=== PATIENT | female | born 1940 | race Caucasian/White ===

== ENCOUNTER 2018-01-29 10:20 | Outpatient (CLI) | payer MEDICARE ==
[~2018-01-29 10:20] MED LIST: CARV-50 PO; CELE-193 PO; CEPH-571 PO; COU2.5T PO; COU5T PO; HYDR-3965 PO; METF500T7 PO; MULTI-VITAMIN PO; SYN0.0125T PO
[2018-01-29] MEDS ORDERED: OLME1TAB44 (14:40)
== END 2018-01-29 12:43 | disposition home or self-care (01) ==
LOC: WOUND CARE 10:20 → EDSTATUS 10:30 → WOUND CARE 12:43
PROVIDERS: ATTEND Surgery
DX: L97.211 Non-pressure chronic ulcer of right calf limited to breakdown of skin (principal); I89.0 Lymphedema, not elsewhere classified; I10 Essential (primary) hypertension; E03.9 Hypothyroidism, unspecified; G89.29 Other chronic pain; I48.91 Unspecified atrial fibrillation; F41.9 Anxiety disorder, unspecified; F32.9 Major depressive disorder, single episode, unspecified; Z90.710 Acquired absence of both cervix and uterus; Z90.49 Acquired absence of other specified parts of digestive tract; Z79.01 Long term (current) use of anticoagulants
CPT/HCPCS: 36416; 82948; 99215; A6021; A6206

== ENCOUNTER 2018-02-06 10:16 | Day surgery (SDC) | payer MEDICARE ==
[~2018-02-06 10:16] MED LIST changes: -CEPH-571 PO; +OLME1TAB44
== END 2018-02-06 12:28 | disposition home or self-care (01) ==
LOC: WOUND CARE 10:16
PROVIDERS: ATTEND Surgery
DX: E11.622 Type 2 diabetes mellitus with other skin ulcer (principal); L97.211 Non-pressure chronic ulcer of right calf limited to breakdown of skin; I89.0 Lymphedema, not elsewhere classified; I10 Essential (primary) hypertension; E03.9 Hypothyroidism, unspecified; G89.29 Other chronic pain; E11.65 Type 2 diabetes mellitus with hyperglycemia; I48.91 Unspecified atrial fibrillation; F41.9 Anxiety disorder, unspecified; F32.9 Major depressive disorder, single episode, unspecified; Z90.710 Acquired absence of both cervix and uterus; Z90.49 Acquired absence of other specified parts of digestive tract; Z79.01 Long term (current) use of anticoagulants
CPT/HCPCS: 36416; 82948; 97597; A6021; A6206; A6441

== ENCOUNTER 2018-02-13 10:27 | Day surgery (SDC) | payer MEDICARE ==
[2018-02-13] MEDS ORDERED: LIDOcaine 2% 5ml jelly ONE (11:19)
== END 2018-02-13 12:20 | disposition home or self-care (01) ==
LOC: WOUND CARE 10:27
PROVIDERS: ATTEND Surgery
DX: E11.622 Type 2 diabetes mellitus with other skin ulcer (principal); L97.211 Non-pressure chronic ulcer of right calf limited to breakdown of skin; I89.0 Lymphedema, not elsewhere classified; I10 Essential (primary) hypertension; E03.9 Hypothyroidism, unspecified; G89.29 Other chronic pain; E11.65 Type 2 diabetes mellitus with hyperglycemia; I48.91 Unspecified atrial fibrillation; F41.9 Anxiety disorder, unspecified; F32.9 Major depressive disorder, single episode, unspecified; Z90.710 Acquired absence of both cervix and uterus; Z90.49 Acquired absence of other specified parts of digestive tract; Z79.01 Long term (current) use of anticoagulants
CPT/HCPCS: 36416; 82948; 97597; A6021; A6223; A6441

== ENCOUNTER 2018-02-20 11:55 | Day surgery (SDC) | payer MEDICARE ==
[~2018-02-20 11:55] MED LIST changes: +LIDOcaine/PRILOcaine 5gm cream TP ONE
== END 2018-02-20 12:37 | disposition home or self-care (01) ==
LOC: WOUND CARE 11:55
PROVIDERS: ATTEND Surgery
DX: E11.622 Type 2 diabetes mellitus with other skin ulcer (principal); L97.211 Non-pressure chronic ulcer of right calf limited to breakdown of skin; I89.0 Lymphedema, not elsewhere classified; I10 Essential (primary) hypertension; E03.9 Hypothyroidism, unspecified; G89.29 Other chronic pain; E11.65 Type 2 diabetes mellitus with hyperglycemia; I48.91 Unspecified atrial fibrillation; F41.9 Anxiety disorder, unspecified; F32.9 Major depressive disorder, single episode, unspecified; Z90.710 Acquired absence of both cervix and uterus; Z90.49 Acquired absence of other specified parts of digestive tract; Z79.01 Long term (current) use of anticoagulants
CPT/HCPCS: 97597; A6021; A6441

== ENCOUNTER 2018-02-26 10:22 | Day surgery (SDC) | payer MEDICARE ==
[~2018-02-26 10:22] MED LIST changes: -LIDOcaine/PRILOcaine 5gm cream TP ONE
== END 2018-02-26 12:15 | disposition home or self-care (01) ==
LOC: WOUND CARE 10:22
PROVIDERS: ATTEND Surgery
DX: E11.622 Type 2 diabetes mellitus with other skin ulcer (principal); L97.211 Non-pressure chronic ulcer of right calf limited to breakdown of skin; I89.0 Lymphedema, not elsewhere classified; I10 Essential (primary) hypertension; E03.9 Hypothyroidism, unspecified; G89.29 Other chronic pain; E11.65 Type 2 diabetes mellitus with hyperglycemia; I48.91 Unspecified atrial fibrillation; F41.9 Anxiety disorder, unspecified; F32.9 Major depressive disorder, single episode, unspecified; Z90.710 Acquired absence of both cervix and uterus; Z90.49 Acquired absence of other specified parts of digestive tract; Z79.01 Long term (current) use of anticoagulants
CPT/HCPCS: 97597; A6021; A6206; A6441